=== PATIENT | male | born 2000 | race African-American/Black ===

== ENCOUNTER 2023-09-24 20:16 | Emergency (ER) | payer BC, MEDICAID, SELFPAY ==
[2023-09-24 20:17] VITALS: BP 144/89; PULSE 103; RESP 16; TEMP 36.4; O2SAT 99; BMI 26.6
--- NOTE | 2023-09-24 20:23 | RAD_ITS ---
EXAM: XR LEFT ANKLE COMPLETE, 3 OR MORE VIEWS CLINICAL INDICATION: INJURY pain. TECHNIQUE: Frontal, lateral and oblique views of the left ankle. COMPARISON: Foot on the same date. FINDINGS: BONES/JOINTS: No significant abnormality. No acute fracture. No subluxation. Normal alignment. Preservation of the joint space. No sclerotic or destructive changes observed. SOFT TISSUES: Extensive soft tissue swelling distal leg and ankle. No radiopaque foreign body. RAD/Ankle min 3 Views IMPRESSION: Extensive soft tissue swelling distal leg and ankle. No evidence of an acute fracture. Electronically Signed: Carlos A Covarrubias DO at 20:44 EST ,
--- NOTE | 2023-09-24 20:23 | RAD_ITS ---
EXAM: XR LEFT FOOT COMPLETE, 3 OR MORE VIEWS CLINICAL INDICATION: INJURY pain. TECHNIQUE: Frontal, lateral and oblique views of the left foot. COMPARISON: Ankle on the same date. FINDINGS: BONES/JOINTS: No significant abnormality. No acute fracture. No subluxation. Normal alignment. Preservation of the joint space. No sclerotic or destructive changes observed. SOFT TISSUES: Soft tissue swelling in the ankle extending into the foot. No radiopaque foreign body. RAD/Foot min 3 Views IMPRESSION: Soft tissue swelling in the ankle extending into the foot. No acute osseous abnormalities. Electronically Signed: Carlos A Covarrubias DO at 20:45 EST ,
--- NOTE | 2023-09-24 22:40 | EDS_ITS ---
HPI History of Present Illness Chief Complaint: Lower Extremity Injury Informant: patient Narrative Narrative: Patient is a 22-year-old male presenting with left ankle injury. He states that 8 PM tonight he was playing basketball and when he came down from a lay up he felt a crack 3 times in his ankle. He states he has had a prior fracture to his ankle and this feels exactly the same. He denies any history of surgery. He thinks he has seen Dr. [facility]le[facility] group before. Associated numbness or tingling. Is having pain on the medial and lateral aspect of his ankle. Denies any other injuries. No other complaints at this time. Did not take any for pain prior to arrival. PFSH PFSH Home Medications ibuprofen 400 mg tablet 400 mg PO Q6H PRN PRN Pain #30 tabs 09/05/17 [Rx Last Taken Unknown] escitalopram oxalate 20 mg tablet 20 mg PO DAILY 09/24/23 [History Last Taken Unknown] ibuprofen 600 mg tablet 600 mg PO Q6H PRN pain #30 tabs 09/24/23 [Rx Last Taken Unknown] Allergy/AdvReac Type Severity Reaction Status Date / Time No Known Allergies Allergy Verified 09/24/23 22:35 Social History Smoking Status: Never smoker ROS ROS ED Constitutional Constitutional ED: Denies chills or fever(s) Gastrointestinal Gastrointestinal: Denies nausea Musculoskeletal Musculoskeletal: Reports other Details: Left ankle pain and swelling Integumentary Denies rash Neurologic Neurologic: Denies paresthesias or weakness Hematologic/Lymphatic Hematologic/Lymphatic: Denies easy bleeding or easy bruising EXAM Physical Exam Const Vital Signs: 09/24/23 20:17 Temperature 97.6 F L Temperature Source Temporal Pulse Rate 103 H Respiratory Rate 16 Blood Pressure 144/89 H Blood Pressure Mean 107 Pulse Ox 99 Oxygen Delivery Method Room Air Positive well nourished and well developed General Appearance ED: well developed and NAD HEENT Reports moist mucous membranes Neck full ROM Chest Wall inspection of chest normal Resp normal respiratory effort Cardio regular rate and regular rhythm Extremity Extremity Narrative: Edema and tenderness of the left ankle. Tenderness to palpation more pronounced over the lateral aspect. Significant soft tissue swelling over the lateral aspect. Normal Chavis test. No tenderness palpation over the knee or fibular head. No tenderness over the metatarsal bones. General Extremety ED: Yes weight-bearing difficulty General Extremity: weight-bearing difficulty Neuro oriented x3, moves all extremities and no sensory deficits noted Sensorium / Orientation: alert Psych mental status grossly normal Skin no wounds Rashes: No no rashes Trauma: Negative for abrasion MDM MDM MDM Narrative Medical decision making narrative: Patient is evaluated for left ankle injury after landing on it poorly playing basketball. Does have significant swelling. X-ray of the ankle and foot reviewed by myself as well as radiology shows soft tissue swelling but no evidence of acute fracture or dislocation. I suspect this is more of a high- grade sprain. Patient is given Aircast and offered crutches. Given a dose of IM Toradol in the emergency room. Given his discharged with instructions on rice therapy and given a prescription for Motrin 600 mg. Encouraged to follow-up with orthopedics. Counseled return precautions. Discharged home in stable condition. Is otherwise neurovascular intact with no other injuries. Patient includes ankle sprain, ankle fracture dislocation. No evidence of fracture or dislocation on x-ray. Radiography Diagnostic Testing: Clinical Impression(s) from Imaging Studies Ankle X-Ray 09/24/23 20:23 IMPRESSION: Extensive soft tissue swelling distal leg and ankle. No evidence of an acute fracture. Electronically Signed: Carlos A CordovaHerb Covarrubias DO at 20:44 EST , Foot X-Ray 09/24/23 20:23 IMPRESSION: Soft tissue swelling in the ankle extending into the foot. No acute osseous abnormalities. Electronically Signed: Carlos A CordovaHerb Covarrubias DO at 20:45 EST , Discharge Plan Triage Chief Complaint: Lower Extremity Injury ED Provider: Patricia Crump Dx/Rx/DC Orders Clinical Impression: Left ankle sprain Instructions: ED Ankle Sprain (Adult) Prescriptions: New ibuprofen 600 mg tablet 600 mg PO Q6H PRN (Reason: pain) Qty: 30 0RF No Action ibuprofen 400 MG tablet 400 mg PO Q6H PRN PRN (Reason: Pain) Qty: 30 0RF escitalopram oxalate 20 mg tablet 20 mg PO DAILY Patient Comments: TAKE 1 TABLET BY MOUTH EVERY DAY Primary Care Provider: Care Physician,No Primary Referrals: Kev Danielle DO [Med Staff - Active Staff] - 3-5 Days if not improving Care Physician,No Primary [Primary Care Provider] - Disposition Disposition: Home, Self Care
[2023-09-24] MEDS: Ketorolac 15 MG/ML Vial IM (22:55)
== END 2023-09-24 23:08 | disposition home or self-care (01) ==
PROVIDERS: Emergency Provider Emergency Medicine; Visit Provider Emergency Medicine
DX: S93.402A Sprain of unspecified ligament of left ankle, initial encounter (principal); Y93.67 Activity, basketball; X58.XXXA Exposure to other specified factors, initial encounter
CPT/HCPCS: 73610; 73630; 99283